=== PATIENT | male | born 1990 | race Caucasian/White ===

== ENCOUNTER 2021-05-31 16:11 | Emergency (ER) | payer OTHER, MEDICAID, SELFPAY ==
[2021-05-31 16:29] VITALS: BP 132/84; PULSE 110; RESP 18; TEMP 36.9; O2SAT 98; BMI 26.4
--- NOTE | 2021-05-31 16:32 | ED.LOWEXIN ---
HPI - Extremity Injury (Lower) General Chief Complaint: Wound/Laceration Stated Complaint: right leg injury Time Seen by Provider: 05/31/21 16:12 History of Present Illness HPI Narrative: 31-year-old male nonsmoker with noncontributory medical history presents with a chief complaint of an accidental laceration on his right anterior rivero. He was moving a large piece of core gated metal when it slipped off the car and lacerated his rivero. His tetanus was updated 3 months ago. He denies any numbness, tingling or weakness. He is otherwise well and free of complaint. Related Data Home Medications Medication Instructions Recorded Confirmed cholecalciferol (vitamin D3) 50 50 mcg PO DAILY 04/20/20 04/20/21 mcg (2,000 unit) capsule melatonin 3 mg capsule 3 mg PO BEDTIME PRN 10/04/20 04/20/21 multivitamin 1 tab PO DAILY 04/20/21 04/20/21 Previous Rx's Medication Instructions Recorded dextroamphetamine-amphetamine 5 mg 5 mg PO DAILY #30 tab 01/25/21 tablet dextroamphetamine-amphetamine ER 5 5 mg PO DAILY #30 cap 04/20/21 mg 24hr capsule,extend release dextroamphetamine-amphetamine ER 5 5 mg PO DAILY #30 cap 04/20/21 mg 24hr capsule,extend release dextroamphetamine-amphetamine ER 5 5 mg PO QAM #30 cap 04/20/21 mg 24hr capsule,extend release Allergies Allergy/AdvReac Type Severity Reaction Status Date / Time peanut Allergy Severe Anaphylaxis Verified 05/31/21 16:29 Sulfa (Sulfonamide Allergy Unknown Verified 05/31/21 16:29 Antibiotics) clindamycin AdvReac Intermediate Vomiting Verified 05/31/21 16:29 Review of Systems Review of Systems Narrative: GENERAL: Denies chills, fatigue, malaise, fever, sweats. HEENT: Denies sinus pain, ear pain, sore throat, difficulty swallowing, dizziness. RESPIRATORY: Denies dyspnea, cough, wheezing, hemoptysis, sputum. CARDIOVASCULAR: Denies chest pain, palpitations, orthopnea, edema, GASTROINTESTINAL: Denies nausea, vomiting, abdominal pain, diarrhea, constipation, melena. : Denies dysuria, frequency, incontinence, hematuria, urinary retention. MUSCULOSKELETAL: denies weakness, joint pain, or bony pain SKIN: See HPI NEUROLOGIC: Denies weakness, headache, numbness, change in speech, confusion, seizures, incoordination. PSYCHIATRIC: No concerning psychosocial issues. 12 point review of systems is negative except for those stated above Patient History Medical History (Updated 05/31/21 @ 16:46 by Fritz Mabry DO) Abdominal pain Attention deficit hyperactivity disorder (ADHD), combined type, moderate Social History marital status: unmarried,living together number of children: 0 lives independently: Yes housing: apartment education level: college occupational status: employed current occupational exposures/hazards: No special caity needs: No Smoking Status: Never smoker alcohol intake: current (3-7 drinks per weekd. ) substance use type: does not use during the past year weight has: decreased > 10 lbs (Working to lose weight for health reasons) well-balanced diet: daily or most days additional social history: - Family Constellation/Environment: Patient was born in [place] and raised from toddler to adult in the [facility]. - Childhood Trauma: None. - Developmental milestones: The patient reached normal developmental milestones. HISTORY: - None. - Deployments: N/A - Combat Exposure: N/A - Blast Exposure: N/A - Education: Patient was a good student in school and graduated from high school, later attending [employer] followed by [employer] with some courses at [employer] in [place] followed by transfer to [employer]. 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 - Legal: None. Interesting note, the will be working in construction over the summer and is going to be working on a project to build an observatory at home in [place]. Smoking Status: Never smoker Exam Narrative Exam Narrative: GEN: AOx3 and in mild distress EYES: Pupils are equal, round, and reactive to light and accommodation. Extraoccular muscles are intact bilaterally. There is no subconjunctival hemorrhage or exudate. CHEST: Lungs are clear to auscultation bilaterally and free of wheezes, rales, or rhonchi. Heart rate is regular rhythm, there are no murmurs, clicks, rubs, or gallops. There is no chest wall tenderness. ABD: Abdomen is soft and nontender. There is no guarding or rebound. Bowel sounds are normal in all 4 quadrants. There is no mass or organomegaly. EXT: 3 cm irregular flap laceration on anterior rivero without evidence of deep tissue involvement, foreign body or arterial involvement. Full painless ROM of all extremities with no loss of sensation or strength. SKIN: Warm, pink, and dry. No erythema or rash Initial Vital Signs Initial Vital Signs: Vital Signs Temperature 98.4 F 05/31/21 16:29 Pulse Rate 110 H 05/31/21 16:29 Respiratory Rate 18 05/31/21 16:29 Blood Pressure 132/84 05/31/21 16:29 Pulse Oximetry 98 05/31/21 16:29 Procedures Laceration Repair Laceration 1: Site: lower extremity Side (If applicable): right Size (cm): 3 Description: flap, irregular and clean Depth: involves muscle layer Local Anesthetic: lidocaine 1% and with bicarb Amount of anesthesia used (mL): 7 Pre-repair: wound explored and irrigated extensively Skin layer closed with: nylon Size (cm): 4-0 Number of sutures: 7 Technique: simple, interrupted Course Orders Ordered: Discontinued Medications Lidocaine/Sodium Bicarbonate (Lido 1%/Sod Bicarb 8.4% (10ml) 10 Ml Syringe) 10 ml INJ NOW ONE Stop: 05/31/21 16:45 Last Admin: 05/31/21 17:04 Dose: 10 ml Documented by: KATHY Vital Signs Vital signs: Vital Signs - 8 hr 05/31/21 16:29 Temperature 98.4 F Pulse Rate 110 H Respiratory Rate 18 Blood Pressure 132/84 Pulse Oximetry 98 Discharge Plan Departure Patient Disposition: Home Clinical Impression: Laceration Instructions: DI for Laceration Repair Activity Restrictions/Additional Instructions: Please keep the wound clean and dry to the best of your ability. Please monitor for signs of infection such as redness to the skin or increasing pain. Have the sutures removed by your doctor in about 7 days. If you are unable to get into your doctor, we would be happy to remove the sutures in that same timeframe. Prescriptions: No Action dextroamphetamine-amphetamine 5 mg tablet 5 mg PO DAILY Qty: 30 RF: 0 multivitamin Tablet 1 tab PO DAILY RF: 0 dextroamphetamine-amphetamine 5 mg capsule,extended release 24hr 5 mg PO DAILY Qty: 30 RF: 0 dextroamphetamine-amphetamine 5 mg capsule,extended release 24hr 5 mg PO DAILY Qty: 30 RF: 0 dextroamphetamine-amphetamine 5 mg capsule,extended release 24hr 5 mg PO QAM Qty: 30 RF: 0 cholecalciferol (vitamin D3) 50 mcg (2,000 unit) capsule 50 mcg PO DAILY RF: 0 melatonin 3 mg capsule 3 mg PO BEDTIME PRNRF: 0 Referrals: [facility] [Outside]
[2021-05-31] MEDS: LIDO 1%/SOD BICARB 8.4% (10ML) 10 ML SYRINGE INJ (17:04)
[2021-05-31 17:09] VITALS: BP 123/78; PULSE 99; RESP 16; O2SAT 99
[2021-05-31 17:37] VITALS: BP 123/78; PULSE 97; O2SAT 97
== END 2021-05-31 17:38 | disposition home or self-care (01) ==
PROVIDERS: Emergency Provider Emergency Medicine
DX: S81.811A Laceration without foreign body, right lower leg, initial encounter (principal); W19.XXXA Unspecified fall, initial encounter
CPT/HCPCS: 13121; 99283

== ENCOUNTER 2022-02-28 11:53 | Emergency (ER) | payer OTHER, MEDICAID, SELFPAY ==
[2022-02-28 12:00] VITALS: BP 133/69; PULSE 98; RESP 14; TEMP 36.3; O2SAT 99; BMI 25.2
--- NOTE | 2022-02-28 13:59 | ED_ITS ---
HPI - Fall <Davey Nicholas PA-C - Last Filed: 02/28/22 16:59> General Chief Complaint: Fall Stated Complaint: Fell at work ,knot on right shoulder/hip Time Seen by Provider: 02/28/22 13:30 Source: patient Mode of arrival: Ambulatory History of Present Illness HPI Narrative: 31-year-old with no reported past medical history presents to the ED status post a mechanical fall sustained just prior to arrival. Patient states he slipped on a mossy rock, striking his right scapula, right hip. Patient suspects he might have hit the right side of his head as well, however denies loss of consciousness. Patient is not on blood thinners. Patient denies any other injuries. Patient denies fever, chills, chest pain, shortness of breath, nausea, vomiting. Related Data Home Medications Medication Instructions Recorded Confirmed cholecalciferol (vitamin D3) 50 50 mcg PO DAILY 04/20/20 04/20/21 mcg (2,000 unit) capsule melatonin 3 mg capsule 3 mg PO BEDTIME PRN 10/04/20 04/20/21 multivitamin 1 tab PO DAILY 04/20/21 04/20/21 Previous Rx's Medication Instructions Recorded dextroamphetamine-amphetamine 5 mg 5 mg PO DAILY #30 tab 01/25/21 tablet dextroamphetamine-amphetamine ER 5 5 mg PO DAILY #30 cap 06/16/21 mg 24hr capsule,extend release dextroamphetamine-amphetamine ER 5 5 mg PO DAILY #30 cap 06/16/21 mg 24hr capsule,extend release dextroamphetamine-amphetamine ER 5 5 mg PO QAM #30 cap 06/16/21 mg 24hr capsule,extend release Allergies Allergy/AdvReac Type Severity Reaction Status Date / Time peanut Allergy Severe Anaphylaxis Verified 02/28/22 12:04 Sulfa (Sulfonamide Allergy Unknown Verified 02/28/22 12:04 Antibiotics) clindamycin AdvReac Intermediate Vomiting Verified 02/28/22 12:04 Review of Systems <Davey Nicholas PA-C - Last Filed: 02/28/22 16:59> Review of Systems ROS Unobtainable: All systems reviewed & are unremarkable except as noted in HPI and below Constitutional Constitutional: Denies chills, Denies fatigue, Denies fever(s), Denies frequent falls, Denies lethargy and Denies weakness Eyes Eyes: Denies change in vision, Denies eye discharge, Denies irritation and Denies loss of vision ENT Ears, Nose, Mouth, and Throat: Denies change in voice, Denies dizziness, Denies neck pain, Denies sore throat and Denies throat swelling Cardiovascular Cardiovascular: Denies chest pain, Denies irregular heart rhythm, Denies lightheadedness, Denies palpitations, Denies dyspnea, Denies dyspnea on exertion and Denies orthopnea Respiratory Respiratory: Denies cough, Denies dyspnea, Denies dyspnea on exertion and Denies wheezing Gastrointestinal Gastrointestinal: Denies abdominal pain, Denies change in bowel habits, Denies d iarrhea, Denies nausea and Denies vomiting Genitourinary Genitourinary: Denies hematuria, Denies flank pain, Denies urinary incontinence and Denies urinary urgency Musculoskeletal Musculoskeletal: Denies back pain, Denies muscle weakness, Denies neck pain, Denies numbness and Denies tingling Comments: Right-sided scapular pain, right hip pain Integumentary/Breasts Skin/Breast: Denies pruritus, Denies erythema, Denies rash and Denies wounds Neurologic Neurologic: Denies behavioral changes, Denies confusion, Denies dizziness, Denies frequent falls, Denies loss of vision, Denies numbness, Denies tingling and Denies weakness Psychiatric Psychiatric: Denies anxiety, Denies behavioral changes, Denies confusion, Denies depression, Denies homicidal ideation and Denies suicidal ideation Endocrine Endocrine: Denies fatigue, Denies flushing and Denies palpitations Hematologic/Lymphatic Hematologic/Lymphatic: Denies easy bruising Allergic/Immunologic Allergic/Immunologic: Denies urticaria, Denies throat swelling and Denies wheezing Patient History <Davey Nicholas PA-C - Last Filed: 02/28/22 16:59> Medical History (Updated 02/28/22 @ 15:10 by Davey Nicholas PA-C) Abdominal pain Attention deficit hyperactivity disorder (ADHD), combined type, moderate Social History marital status: unmarried,living together number of children: 0 lives independently: Yes housing: apartment education level: college occupational status: employed current occupational exposures/hazards: No special caity needs: No Smoking Status: Never smoker alcohol intake: current (3-7 drinks per weekd. ) substance use type: does not use during the past year weight has: decreased > 10 lbs (Working to lose weight for health reasons) well-balanced diet: daily or most days additional social history: - Family Constellation/Environment: Patient was born in [place] and raised from toddler to adult in the [facility]. - Childhood Trauma: None. - Developmental milestones: The patient reached normal developmental milestones. HISTORY: - None. - Deployments: N/A - Combat Exposure: N/A - Blast Exposure: N/A - Education: Patient was a good student in school and graduated from high school, later attending [employer] followed by [employer] with some courses at [employer] in [place] followed by transfer to [employer]. 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 - Legal: None. 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 Smoking Status: Never smoker alcohol intake frequency: 3 or more drinks per day Alcohol type: hard liquor Substance Use Type: does not use Exam <Davey Nicholas PA-C - Last Filed: 02/28/22 16:59> Initial Vital Signs Initial Vital Signs: Vital Signs Temperature 97.4 F L 02/28/22 12:00 Pulse Rate 98 H 02/28/22 12:00 Respiratory Rate 14 02/28/22 12:00 Blood Pressure 133/69 02/28/22 12:00 Pulse Oximetry 99 02/28/22 12:00 Const General: cooperative, healthy appearing and comfortable HENMT Head: normal to inspection, normocephalic, No Quinones's sign and No raccoon eyes Ears: hearing grossly normal bilaterally Nose: external nose normal Face and sinus: normal facial exam Other HENMT:: Mild tenderness to palpation of right temporal area. No palpable skull fracture, no hematoma, skin intact. Eyes General: Yes appearance normal, both eyes and all related structures Neck Neck: normal visual inspection and full ROM Chest Chest: normal inspection of the chest Resp Effort & Inspection: normal respiratory effort Auscultation: clear to auscultation bilaterally Cardio Rate: regular rate Rhythm: regular rhythm GI Other: Abdomen is soft, nondistended, nontender to palpation Back/Spine/Pelvis Back: normal to inspection and No back tenderness Neuro General: patient alert, patient awake and patient oriented x3 Extrem Other: Small abrasion on right scapular area, bony tenderness to palpation of scapular region. Patient has full range of motion, however experiences pain in the right scapular area when at adducting his arm. Psych Appearance: grossly normal Mental Status: mental status grossly normal <Fritz Mabry DO - Last Filed: 03/03/22 00:43> Initial Vital Signs Initial Vital Signs: Vital Signs Temperature 97.4 F L 02/28/22 12:00 Pulse Rate 98 H 02/28/22 12:00 Respiratory Rate 14 02/28/22 12:00 Blood Pressure 133/69 02/28/22 12:00 Pulse Oximetry 99 02/28/22 12:00 Course <Davey Nicholas PA-C - Last Filed: 02/28/22 16:59> Orders Ordered: ED Orders 02/28/22 14:07 XR shoulder RT min 2V Stat Vital Signs Vital signs: Vital Signs - 8 hr 02/28/22 12:00 02/28/22 15:16 Temperature 97.4 F L Pulse Rate 98 H 86 Respiratory Rate 14 18 Blood Pressure 133/69 116/73 Pulse Oximetry 99 100 <Fritz Mabry DO - Last Filed: 03/03/22 00:43> Orders Ordered: ED Orders 02/28/22 14:07 XR shoulder RT min 2V Stat Vital Signs Vital signs: Vital Signs - 8 hr 02/28/22 12:00 02/28/22 15:16 Temperature 97.4 F L Pulse Rate 98 H 86 Respiratory Rate 14 18 Blood Pressure 133/69 116/73 Pulse Oximetry 99 100 MDM - Fall <SABINE Ferguson Last Filed: 02/28/22 16:59> Imaging Data Shoulder x-ray: Radiologist's Impression: PROCEDURE:? XR SHOULDER RT MIN 2V ? INDICATIONS:? Fall, direct injury, scapular TTP ? TECHNIQUE:? 3 views of the shoulder were acquired.? ? COMPARISON:? None. ? FINDINGS:? ? Bones:? No fractures or dislocations.? No suspicious bony lesions.? Visualized ribs appear intact.? ? Soft tissues:? No suspicious soft tissue calcifications.? ? IMPRESSION:? No acute radiographic findings. If pain persists, followup imaging in 5-7 days is recommended to exclude occult fracture. ? ? Dictated by: Evelina Marinelli M.D. on 02/28/2022 at 14:44 ? ? Approved by: Evelina Marinelli M.D. on 02/28/2022 at 14:45 ? MDM Narrative Medical decision making narrative: 31-year-old with no reported past medical history presents to the ED status post a mechanical fall sustained just prior to arrival. Concern for musculoskeletal sprain/strain versus fracture. Will obtain shoulder x-rays to include the scapula. Patient took some ibuprofen prior to arrival and states that his pain is well controlled. Will reassess. X-ray without acute findings. Patient discharged home with ED return precautions. Patient verbalized understanding. Discharge Plan Departure Patient Disposition: Home Clinical Impression: Right shoulder pain Instructions: DI for Shoulder Pain Activity Restrictions/Additional Instructions: You were evaluated in the ED today for a right shoulder injury. Your x-ray did not show a fracture or dislocation. Your pain is likely due to a contusion or musculoskeletal sprain/strain. You may continue to take ibuprofen for your symptoms. Return to the ED if you have worsening pain, shortness of breath, chest pain. Prescriptions: No Action dextroamphetamine-amphetamine 5 mg tablet 5 mg PO DAILY Qty: 30 0RF Rx Instructions: Take with Adderall 5 mg ER AM dose if afternoon booster needed. multivitamin Tablet 1 tab PO DAILY 0RF cholecalciferol (vitamin D3) 50 mcg (2,000 unit) capsule 50 mcg PO DAILY 0RF melatonin 3 mg capsule 3 mg PO BEDTIME PRN0RF dextroamphetamine-amphetamine 5 mg capsule,extended release 24hr 5 mg PO DAILY Qty: 30 0RF dextroamphetamine-amphetamine 5 mg capsule,extended release 24hr 5 mg PO DAILY Qty: 30 0RF dextroamphetamine-amphetamine 5 mg capsule,extended release 24hr 5 mg PO QAM Qty: 30 0RF Referrals: Neville Sue MD [Primary Care Provider] - <Fritz Mabry DO - Last Filed: 03/03/22 00:43> Cosign ED Attending Kavithaature Attestation: I was immediately available in the department for consultation. Documentation has been reviewed. I agree with assessment and plan.
--- NOTE | 2022-02-28 14:07 | DI.RAD.S_ITS ---
PROCEDURE: XR SHOULDER RT MIN 2V INDICATIONS: Fall, direct injury, scapular TTP TECHNIQUE: 3 views of the shoulder were acquired. COMPARISON: None. FINDINGS: Bones: No fractures or dislocations. No suspicious bony lesions. Visualized ribs appear intact. Soft tissues: No suspicious soft tissue calcifications. IMPRESSION: No acute radiographic findings. If pain persists, followup imaging in 5-7 days is recommended to exclude occult fracture. Dictated by: Evelina Marinelli M.D. on 02/28/2022 at 14:44 Approved by: Evelina Marinelli M.D. on 02/28/2022 at 14:45
[2022-02-28 15:16] VITALS: BP 116/73; PULSE 86; RESP 18; O2SAT 100
== END 2022-02-28 15:17 | disposition home or self-care (01) ==
PROVIDERS: Emergency Provider Student in an Organized Health Care Education/Training Program; PCP Family Medicine
DX: M25.511 Pain in right shoulder (principal); W01.198A Fall on same level from slipping, tripping and stumbling with subsequent striking against other object, initial encounter
CPT/HCPCS: 73030; 99283

== ENCOUNTER → 2023-01-24 07:54 | Outpatient (CLI) | payer OTHER, MEDICAID, SELFPAY ==
--- NOTE | 2023-01-24 07:56 | DI.US.S_ITS ---
PROCEDURE: US ABDOMEN LIMITED INDICATIONS: RIGHT UPPER QUADRANT PAIN TECHNIQUE: Real-time scanning was performed of the abdominal, with image documentation. COMPARISON: None. FINDINGS: Liver: Liver is normal in size and homogeneous in echotexture. Gallbladder: Nondilated. No stones or sludge. Normal gallbladder wall thickness. Gallbladder wall polyp at the posterior wall measuring 0.4 cm. No pericholecystic fluid. Negative sonographic Sabillon's sign. Biliary ducts: Intrahepatic bile ducts are non-dilated. Extrahepatic bile duct caliber measures 3 mm. Normal is 6-7 mm or less in diameter, or 10 mm or less post-cholecystectomy. Pancreas: Visualized portions of the pancreas are sonographically normal. IMPRESSION: 1. No acute cholecystitis. No convincing gallstones. 2. Small gallbladder polyp measuring at 0.4 cm. No further follow-up is required. Dictated by: Vazquez Hernandez M.D. on 01/24/2023 at 9:24 Approved by: Vazquez Hernandez M.D. on 01/24/2023 at 9:26
== END ==
PROVIDERS: PCP Family Medicine; Referring Provider Family Medicine; Visit Provider Family Medicine
DX: K82.4 Cholesterolosis of gallbladder (principal); R10.11 Right upper quadrant pain
CPT/HCPCS: 76705

== ENCOUNTER 2024-06-22 01:07 | Emergency (ER) | payer OTHER, SELFPAY ==
[2024-06-22] VITALS (7 sets, daily range): BP systolic 142–149; BP diastolic 72–86; PULSE 108–137; RESP 18–24; TEMP 37.2; O2SAT 95–100; BMI 27.7
--- NOTE | 2024-06-22 01:19 | EKG_ITS ---
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
--- NOTE | 2024-06-22 01:30 | ED_ITS ---
HPI - Chest Pain General Chief Complaint: Chest Pain Stated Complaint: Chest pain Time Seen by Provider: 06/22/24 01:30 Source: patient Mode of arrival: Wheelchair Limitations: no limitations History of Present Illness HPI narrative: Patient is a healthy 34-year-old male who presents today with chest pain and palpitations. He reports that he just got over with COVID. He started having symptoms last week he took DayQuil and NyQuil without any sort of issue he has been testing negative for the last 2 days and symptoms have overall improved. Today he reports that he woke up tonight with racing heart his January got his heart rate in the 150s he had some pressure and palpitations. He thinks he may have felt this like last week or couple days ago. No dizziness or lightheadedness. He reports that he did drink 2 things of caffeine today but still about 80 mg or last he did have a little bit of alcohol tonight as well. He is no longer reporting any COVID symptoms feeling better in that regard. He has no arrhythmia or coronary artery disease. He denies any significant shortness of breath Related Data Home Medications Medication Instructions Recorded Confirmed cholecalciferol (vitamin D3) 50 50 mcg PO DAILY 04/20/20 04/20/21 mcg (2,000 unit) capsule melatonin 3 mg capsule 3 mg PO BEDTIME PRN 10/04/20 04/20/21 multivitamin 1 tab PO DAILY 04/20/21 04/20/21 Previous Rx's Medication Instructions Recorded dextroamphetamine-amphetamine 5 mg 5 mg PO DAILY #30 tabs 01/25/21 tablet dextroamphetamine-amphetamine ER 5 5 mg PO DAILY #30 caps 06/16/21 mg 24hr capsule,extend release dextroamphetamine-amphetamine ER 5 5 mg PO DAILY #30 caps 06/16/21 mg 24hr capsule,extend release dextroamphetamine-amphetamine ER 5 5 mg PO QAM #30 caps 06/16/21 mg 24hr capsule,extend release Allergies Allergy/AdvReac Type Severity Reaction Status Date / Time peanut Allergy Severe Anaphylaxis Verified 02/28/22 12:04 Sulfa (Sulfonamide Allergy Unknown Verified 02/28/22 12:04 Antibiotics) clindamycin AdvReac Intermediate Vomiting Verified 02/28/22 12:04 Patient History Medical History (Updated 06/22/24 @ 03:06 by Pearl Connolly DO) Attention deficit hyperactivity disorder (ADHD), combined type, moderate Abdominal pain Social History marital status: unmarried,living together number of children: 0 lives independently: Yes housing: apartment education level: college occupational status: employed current occupational exposures/hazards: No special caity needs: No Smoking Status: Never smoker alcohol intake: current (3-7 drinks per weekd. ) substance use type: does not use during the past year weight has: decreased > 10 lbs (Working to lose weight for health reasons) well-balanced diet: daily or most days additional social history: - Family Constellation/Environment: Patient was born in [place] and raised from toddler to adult in the [facility]. - Childhood Trauma: None. - Developmental milestones: The patient reached normal developmental milestones. HISTORY: - None. - Deployments: N/A - Combat Exposure: N/A - Blast Exposure: N/A - Education: Patient was a good student in school and graduated from high school, later attending [employer] followed by [employer] with some courses at [employer] in [employer] followed by transfer to [employer]. 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 - Current Living: Patient currently lives with his girlfriend - Support: Income from employment. - Legal: None. Interesting note, the will be working in construction over the summer and is going to be working on a project to build an observatory at home in [place]. Smoking Status: Never smoker alcohol intake frequency: 3 or more drinks per day Alcohol type: hard liquor Substance Use Type: does not use Exam Initial Vital Signs Initial Vital Signs: Vital Signs Temperature 99.0 F 06/22/24 01:16 Pulse Rate 137 H 06/22/24 01:16 Respiratory Rate 20 06/22/24 01:16 Blood Pressure 149/72 H 06/22/24 01:16 Pulse Oximetry 100 06/22/24 01:16 Oxygen Delivery Method Room Air 06/22/24 01:16 GENERAL: Alert pleasant well-appearing 34-year-old and in no acute distress. HEENT: Head atraumatic,EOMI, pupils reactive, face symmetric, moist mucous membranes CARDIOVASCULAR: Tachycardic regular no murmurs RESPIRATORY: Breath sounds equal bilaterally, no wheezes rales or rhonchi. ABDOMEN: Soft, nontender. Normoactive bowel sounds all 4 quadrants. No guarding or rebound. EXTREMITIES: Normal range of motion, no clubbing or edema. Neurovascularly intact NEUROLOGICAL: Alert and oriented x4.Normal gait and speech. Cranial nerves II through XII grossly intact. SKIN: Warm, dry, no laceration, no petechiae, no rashes or lesions. Course Orders Ordered: ED Orders 06/22/24 01:10 EKG-12 Lead Stat 06/22/24 01:28 Complete Blood Count AUTO DIFF Stat Comprehensive Metabolic Panel Stat D Dimer Stat Lipase Stat TSH [Thyroid Stimulating Hormone] Stat Troponin & CK Cardiac Panel Stat 06/22/24 01:30 XR chest 1V Stat Discontinued Medications Sodium Chloride (Normal Saline 0.9%) 1,000 mls @ 1,000 mls/hr IV BOLUS ONE Stop: 06/22/24 02:29 Last Infusion: 06/22/24 02:40 Dose: Infused Documented By: Admin: 06/22/24 01:36 Dose: 1,000 mls/hr Documented By: LIAT Vital Signs Vital signs: Vital Signs - 8 hr 06/22/24 01:16 06/22/24 01:28 06/22/24 01:30 Temperature 99.0 F Pulse Rate 137 H 127 H 126 H Respiratory Rate 20 19 22 Blood Pressure 149/72 H Pulse Oximetry 100 99 97 Oxygen Delivery Method Room Air 06/22/24 02:00 06/22/24 02:30 06/22/24 02:38 Temperature Pulse Rate 113 H 112 H 113 H Respiratory Rate 18 24 Blood Pressure Pulse Oximetry 95 96 97 Oxygen Delivery Method 06/22/24 02:38 06/22/24 03:00 Temperature Pulse Rate 108 H Respiratory Rate 20 Blood Pressure 142/86 H Pulse Oximetry 96 Oxygen Delivery Method MDM - Chest Pain Lab Data 06/22/24 01:28 06/22/24 01:28 Labs: Lab Results 06/22/24 Range/Units 01:28 WBC 8.2 (4.5-11.0) X10^3/uL RBC 5.11 (4.5-5.9) X10^6/uL Hgb 15.5 (13.5-17.5) g/dL Hct 43.3 (41-53) % MCV 84.6 (80-100) fL MCH 30.4 (26-34) PG MCHC 35.9 (30-36) % RDW 13.1 (11.6-14.8) % Plt Count 194 (150-400) X10^3/uL Neut % (Auto) 44.5 L (50-75) % Lymph % (Auto) 45.5 H (25-40) % [place] % (Auto) 7.4 (3-14) % Eos % (Auto) 2.0 (2-4) % Baso % (Auto) 0.6 (0-2) % Neut # (Auto) 3600 (0915-7207) /uL Lymph # (Auto) 3700 (0211-8861) /uL [place] # (Auto) 600 (0-900) /uL Eos # (Auto) 200 (0-450) /uL Baso # (Auto) 0 (0-100) /uL D-Dimer < 200 (<500) ng/ml Sodium 140 (137-145) mmol/L Potassium 3.5 (3.4-5.1) mmol/L Chloride 106 (98-107) mmol/L Carbon Dioxide 27 (22-32) mmol/L BUN 12 (9-20) mg/dL Creatinine 0.78 (0.66-1.25) mg/dL Estimated GFR > 60 (>60) mL/min BUN/Creatinine Ratio 15.4 (6-22) Glucose 113 H (70-100) mg/dL Calcium 9.0 (8.4-10.2) mg/dL Total Bilirubin 0.9 (0.2-1.3) mg/dL AST 35 (17-59) IU/L ALT 55 H (<50) IU/L Alkaline Phosphatase 61 (38-126) U/L Total Creatine Kinase 69 (55-170) U/L Troponin I < 0.012 (0.01-0.034) ng/mL Total Protein 7.6 (6.3-8.2) g/dL Albumin 4.4 (3.5-5.0) g/dL Globulin 3.2 (1.7-4.1) g/dL Albumin/Globulin Ratio 1.4 (1.0-2.8) Lipase 111 (23-300) U/L TSH 5.46 H (0.47-4.68) uIU/mL Imaging Data Chest x-ray: Radiologist's Impression: Preliminary report no acute cardiopulmonary process ECG Data Attestation: I personally reviewed and interpreted this ECG as follows: Interpretation: Normal sinus rhythm rate 131 AK interval 142 QRS [address] changes MDM Narrative Medical decision making narrative: Patient is a healthy 34-year-old male recently getting over COVID presenting today with palpitations. He is noted to have sinus tachycardia in the rate 130s when he initially came in. Heart rate come into the 120s in his slowly come down with IV. He overall is feeling much better. Blood work has been reviewed he has a negative D-dimer negative troponin no anemia, electrolytes stable no MACHO TSH is 5.46 Chest x-ray reviewed no acute cardiopulmonary process EKG reviewed sinus tachycardia Patient received 1 L of IV fluids Patient presenting today with palpitations. Heart rate was actually quite fast when he came in but not hypotensive. Heart rate improved with IV fluids only, down to 105, overall feeling much better. He does report having 2 episodes of coffee but it does seem to be a little delayed reaction to be from caffeine although still possible. No concern for pulmonary embolism with a negative D- dimer. TSH is slightly elevated although I do not think high enough to be for thyroid storm. Recommend staying hydrated supportive care only. Encouraged ZIO patch he does have a PCP meet can follow-up with Discharge Plan Departure Patient Disposition: Home Clinical Impression: Heart palpitations Instructions: DI for Palpitations Activity Restrictions/Additional Instructions: *You have been diagnosed with palpitations *What to do: At this time if you continue to have heart palpitations I recommend he talk to primary care provider about a ZIO patch. Please stay hydrated would avoid caffeine *Continue to take medications as directed *Follow up with your primary care provider in 2-3 days or call [phone] *Return to ER if you should have increasing palpitations dizziness lightheadedness passing out shortness of breath [or] any new, worsening or concerning symptoms Prescriptions: No Action dextroamphetamine-amphetamine 5 mg tablet 5 mg PO DAILY Qty: 30 0RF Rx Instructions: Take with Adderall 5 mg ER AM dose if afternoon booster needed. multivitamin Tablet 1 tab PO DAILY cholecalciferol (vitamin D3) 50 mcg (2,000 unit) capsule 50 mcg PO DAILY melatonin 3 mg capsule 3 mg PO BEDTIME PRN dextroamphetamine-amphetamine 5 mg capsule,extended release 24hr 5 mg PO DAILY Qty: 30 0RF dextroamphetamine-amphetamine 5 mg capsule,extended release 24hr 5 mg PO DAILY Qty: 30 0RF dextroamphetamine-amphetamine 5 mg capsule,extended release 24hr 5 mg PO QAM Qty: 30 0RF Referrals: Neville Sue MD [Primary Care Provider] - Stand Alone Forms: Patient Portal/API
--- NOTE | 2024-06-22 01:30 | DI.RAD.S_ITS ---
PROCEDURE: XR CHEST 1V INDICATIONS: chest pain TECHNIQUE: One view of the chest was acquired. COMPARISON: None. FINDINGS: Surgical changes and devices: None. Lungs and pleura: Lungs are clear. No pleural effusions or pneumothorax. Mediastinum: Mediastinal contours appear normal. Heart size is normal. Bones and chest wall: No suspicious bony lesions. Overlying soft tissues appear unremarkable. IMPRESSION: No acute cardiopulmonary abnormality is seen. Note: This final report is concordant with the preliminary after-hours interpretation provided by [facility] Approved by: Sergio Scott M.D. on 06/22/2024 at 8:35
[2024-06-22] MEDS: SODIUM CHLORIDE 0.9% 1,000 ML 1000 ML IV (01:36)
[2024-06-22 01:39] LABS: Add Manual Diff / Slide Review NO; Basophils Absolute Auto 0 /uL (0-100); Basophils Percent Auto 0.6 % (0-2); Eosinophils Absolute Auto 200 /uL (0-450); Hematocrit 43.3 % (41-53); Hemoglobin 15.5 g/dL (13.5-17.5); Lymphocytes Absolute Auto 3700 /uL (1100-4500); Lymphocytes Percent Auto 45.5 % (25-40); Mean Corpuscular HGB Conc 35.9 % (30-36); Mean Corpuscular Hemoglobin 30.4 PG (26-34); Mean Corpuscular Volume 84.6 fL (80-100); Monocytes Absolute Auto 600 /uL (0-900); Monocytes Percent Auto 7.4 % (3-14); Neutrophils Absolute Auto 3600 /uL (1500-7000); Neutrophils Percent Auto 44.5 % (50-75); Platelet Count 194 X10^3/uL (150-400); Red Blood Cell Count 5.11 X10^6/uL (4.5-5.9); Red Cell Distribution Width 13.1 % (11.6-14.8); White Blood Cell Count 8.2 X10^3/uL (4.5-11.0)
[2024-06-22 01:48] LABS: Alanine Aminotransferase 55 IU/L (<50); Albumin 4.4 g/dL (3.5-5.0); Albumin Globulin Ratio 1.4 (1.0-2.8); Alkaline Phosphatase 61 U/L (38-126); Aspartate Aminotransferase 35 IU/L (17-59); BUN Creatinine Ratio 15.4 (6-22); Bilirubin Total 0.9 mg/dL (0.2-1.3); Blood Urea Nitrogen 12 mg/dL (9-20); Carbon Dioxide 27 mmol/L (22-32); Chloride 106 mmol/L (98-107); Creatine Kinase 69 U/L (55-170); Estimated Glomerular Filt Rate > 60 mL/min (>60); Globulin 3.2 g/dL (1.7-4.1); Glucose 113 mg/dL (70-100); HEMOLYSIS 22 (0-50); Lipase 111 U/L (23-300); Potassium 3.5 mmol/L (3.4-5.1); Sodium 140 mmol/L (137-145); Total Protein 7.6 g/dL (6.3-8.2)
[2024-06-22 01:54] LABS: D Dimer < 200 ng/ml (<500)
[2024-06-22 02:00] LABS: Troponin I < 0.012 ng/mL (0.01-0.034)
[2024-06-22 04:06] LABS: Thyroid Stimulating Hormone 5.46 uIU/mL (0.47-4.68)
== END 2024-06-22 03:17 | disposition home or self-care (01) ==
PROVIDERS: Emergency Provider Emergency Medicine; PCP Family Medicine
DX: R00.2 Palpitations (principal); R00.0 Tachycardia, unspecified
CPT/HCPCS: 36415; 71045; 80053; 82550; 83690; 84443; 84484; 85025; 85379; 93005; 93010; 96360; 99284

== ENCOUNTER 2024-09-16 15:03 | Emergency (ER) | payer OTHER, SELFPAY ==
[2024-09-16] VITALS (7 sets, daily range): BP systolic 117–138; BP diastolic 70–88; PULSE 85–124; RESP 15–22; TEMP 37.2; O2SAT 95–98; BMI 27.9
--- NOTE | 2024-09-16 15:21 | DI.RAD.S_ITS ---
PROCEDURE: XR CHEST 1V INDICATIONS: chest pain TECHNIQUE: One view of the chest was acquired. COMPARISON: [facility], CR, XR CHEST 1V, 06/22/2024, 2:07. FINDINGS: Surgical changes and devices: None. Lungs and pleura: No dense consolidation or pleural effusions. Mediastinum: Heart size is normal and unchanged. Bones and chest wall: Unremarkable IMPRESSION: No acute radiographic abnormality on this single view study. Dictated by: Ernesto Tran M.D. on 09/16/2024 at 16:17 Approved by: Ernesto Tran M.D. on 09/16/2024 at 16:17
--- NOTE | 2024-09-16 15:29 | EKG_ITS ---
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
[2024-09-16 16:04] LABS: Add Manual Diff / Slide Review NO; Basophils Absolute Auto 100 /uL (0-100); Basophils Percent Auto 0.8 % (0-2); Eosinophils Absolute Auto 100 /uL (0-450); Eosinophils Percent Auto 1.3 % (2-4); Hematocrit 45.7 % (41-53); Lymphocytes Absolute Auto 1600 /uL (1100-4500); Lymphocytes Percent Auto 19.6 % (25-40); Mean Corpuscular Hemoglobin 29.8 PG (26-34); Monocytes Absolute Auto 500 /uL (0-900); Monocytes Percent Auto 6.5 % (3-14); Neutrophils Absolute Auto 6000 /uL (1500-7000); Neutrophils Percent Auto 71.8 % (50-75); Platelet Count 224 X10^3/uL (150-400); Red Blood Cell Count 5.38 X10^6/uL (4.5-5.9); Red Cell Distribution Width 12.9 % (11.6-14.8); White Blood Cell Count 8.4 X10^3/uL (4.5-11.0)
[2024-09-16 16:11] LABS: INR 1.1 (0.9-1.3); Prothrombin Time 12.1 SECONDS (9.4-12.5)
[2024-09-16 16:14] LABS: PTT Partial Thromboplastin Tim 38 SECONDS (25.1-36.5)
[2024-09-16 16:16] LABS: Alanine Aminotransferase 41 IU/L (<50); Albumin 4.7 g/dL (3.5-5.0); Albumin Globulin Ratio 1.6 (1.0-2.8); Alkaline Phosphatase 51 U/L (38-126); Aspartate Aminotransferase 26 IU/L (17-59); BUN Creatinine Ratio 12.3 (6-22); Bilirubin Total 1.6 mg/dL (0.2-1.3); Blood Urea Nitrogen 10 mg/dL (9-20); Calcium 9.2 mg/dL (8.4-10.2); Carbon Dioxide 27 mmol/L (22-32); Chloride 106 mmol/L (98-107); Creatine Kinase 55 U/L (55-170); Estimated Glomerular Filt Rate > 60 mL/min (>60); Globulin 2.9 g/dL (1.7-4.1); Glucose 129 mg/dL (70-100); HEMOLYSIS < 15 (0-50); Lipase 85 U/L (23-300); Potassium 3.7 mmol/L (3.4-5.1); Sodium 140 mmol/L (137-145); Total Protein 7.6 g/dL (6.3-8.2)
[2024-09-16 16:27] LABS: NT-proBNP (BNP-Adult 18+) < 20 pg/mL (<125); Troponin I < 0.012 ng/mL (0.01-0.034)
[2024-09-16 19:18] LABS: Ur Creatinine Normal (Normal); Ur Specific Gravity Normal (Normal); Urine pH Normal (Normal)
[2024-09-16 19:19] LABS: UR Morphine/Opiate cutoff 300 Negative (Negative); Urine Amphetamines Negative (Negative); Urine Barbiturates Negative (Negative); Urine Benzodiazepines Negative (Negative); Urine Cocaine Negative (Negative); Urine MDMA Negative (Negative); Urine Methadone Negative (Negative); Urine Methamphetamines Negative (Negative); Urine Oxycodone Negative (Negative); Urine Phencyclidine Negative (Negative); Urine Tetrahydrocannabinol Negative (Negative); Urine Tricyclic Antidepressant Negative (Negative)
--- NOTE | 2024-09-16 19:20 | PC.NURSE ---
pt c/o difficulty sleeping has been taking otc meds without relief
--- NOTE | 2024-09-16 19:27 | ED.ARRPALP ---
HPI - Arrhythmia/Palpitations General Chief Complaint: Arrhythmia/Palpitations Stated Complaint: mild chest px Time Seen by Provider: 09/16/24 18:22 Source: patient Mode of arrival: Ambulatory History of Present Illness HPI narrative: 34-year-old male presents for chest pain, palpitations, insomnia for the last 37 hours. Patient states that he was seen 06/22/2024 for similar symptoms and underwent negative workup in the emergency department. He has been following up with his primary care doctor to discuss additional testing. Patient states that since last night he has been unable to sleep, every time he feels himself drifting off he startles awake. He has tried Unisom and melatonin without relief. He states that he has always has been a poor sleeper, but complete insomnia is unusual for him. He states that he wants to rule out emergencies with his heart primarily, but if he could get help with something to sleep that would also be welcomed. Patient states that he has been trying to improve his sleep hygiene with some success. Normally unysom and melatonin help him fall asleep. Since arrival to the emergency department chest symptoms have improved. Related Data Home Medications Medication Instructions Recorded Confirmed cholecalciferol (vitamin D3) 50 50 mcg PO DAILY 04/20/20 04/20/21 mcg (2,000 unit) capsule melatonin 3 mg capsule 3 mg PO BEDTIME PRN 10/04/20 04/20/21 multivitamin 1 tab PO DAILY 04/20/21 04/20/21 Previous Rx's Medication Instructions Recorded dextroamphetamine-amphetamine 5 mg 5 mg PO DAILY #30 tabs 01/25/21 tablet dextroamphetamine-amphetamine ER 5 5 mg PO DAILY #30 caps 06/16/21 mg 24hr capsule,extend release dextroamphetamine-amphetamine ER 5 5 mg PO DAILY #30 caps 06/16/21 mg 24hr capsule,extend release dextroamphetamine-amphetamine ER 5 5 mg PO QAM #30 caps 06/16/21 mg 24hr capsule,extend release trazodone 50 mg tablet 50 mg PO BEDTIME PRN insomnia #14 09/16/24 tabs Allergies Allergy/AdvReac Type Severity Reaction Status Date / Time peanut Allergy Severe Anaphylaxis Verified 09/16/24 15:21 Sulfa (Sulfonamide Allergy Unknown Verified 09/16/24 15:21 Antibiotics) clindamycin AdvReac Intermediate Vomiting Verified 09/16/24 15:21 Patient History Medical History Attention deficit hyperactivity disorder (ADHD), combined type, moderate Abdominal pain Social History marital status: unmarried,living together number of children: 0 lives independently: Yes housing: apartment education level: college occupational status: employed current occupational exposures/hazards: No special caity needs: No Smoking Status: Never smoker alcohol intake: current (3-7 drinks per weekd. ) substance use type: does not use during the past year weight has: decreased > 10 lbs (Working to lose weight for health reasons) well-balanced diet: daily or most days additional social history: - Family Constellation/Environment: Patient was born in [place] and raised from toddler to adult in the [facility]. - Childhood Trauma: None. - Developmental milestones: The patient reached normal developmental milestones. HISTORY: - None. - Deployments: N/A - Combat Exposure: N/A - Blast Exposure: N/A - Education: Patient was a good student in school and graduated from high school, later attending [employer] followed by [employer] with some courses at [employer] in [place] followed by transfer to [employer]. 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 - Current Living: Patient currently lives with his girlfriend - Support: Income from employment. - Legal: None. Interesting note, the will be working in construction over the summer and is going to be working on a project to build an observatory at home in [place]. Smoking Status: Never smoker alcohol intake frequency: 3 or more drinks per day Alcohol type: hard liquor Substance Use Type: does not use Exam Initial Vital Signs Initial Vital Signs: Vital Signs Temperature 98.9 F 09/16/24 15:14 Pulse Rate 124 H 09/16/24 15:14 Respiratory Rate 20 09/16/24 15:14 Blood Pressure 138/88 09/16/24 15:14 Pulse Oximetry 97 09/16/24 15:14 Oxygen Delivery Method Room Air 09/16/24 15:14 Const: Awake, alert, no acute distress, nontoxic appearing Cardiac: regular rate, regular rhythm RESP: unlabored, clear bilaterally, no wheezing GI: Soft, nontender, nondistende Skin: Warm, Dry, intact, no rashes Neuro: AO x3, CN II-XII grossly intact, moves all extremities Course Orders Ordered: Discontinued Medications Aspirin (Aspirin 81 Mg Chew Tab) 324 mg PO NOW ONE Stop: 09/16/24 15:22 Last Admin: 09/16/24 19:34 Dose: Not Given Documented By: LAILA Trazodone HCl (Trazodone 50 Mg Tablet) 100 mg PO BEDTIME ONE Stop: 09/16/24 19:31 Last Admin: 09/16/24 19:53 Dose: 100 mg Documented By: LAILA Vital Signs Vital signs: Vital Signs - 8 hr 09/16/24 15:14 09/16/24 16:29 Temperature 98.9 F Pulse Rate 124 H 85 Respiratory Rate 20 18 Blood Pressure 138/88 122/85 Pulse Oximetry 97 98 Oxygen Delivery Method Room Air Room Air MDM - Arrhythmia/Palpitations Differential Diagnosis Differential diagnosis: Likely palpitations, sinus tachycardia and ventricular premature beats Lab Data 09/16/24 15:50 09/16/24 15:50 Labs: Lab Results 09/16/24 09/16/24 Range/Units 15:50 18:58 WBC 8.4 (4.5-11.0) X10^3/uL RBC 5.38 (4.5-5.9) X10^6/uL Hgb 16.0 (13.5-17.5) g/dL Hct 45.7 (41-53) % MCV 85.0 (80-100) fL MCH 29.8 (26-34) PG MCHC 35.0 (30-36) % RDW 12.9 (11.6-14.8) % Plt Count 224 (150-400) X10^3/uL Neut % (Auto) 71.8 (50-75) % Lymph % (Auto) 19.6 L (25-40) % [place] % (Auto) 6.5 (3-14) % Eos % (Auto) 1.3 L (2-4) % Baso % (Auto) 0.8 (0-2) % Neut # (Auto) 6000 (8187-1742) /uL Lymph # (Auto) 1600 (6817-1343) /uL [place] # (Auto) 500 (0-900) /uL Eos # (Auto) 100 (0-450) /uL Baso # (Auto) 100 (0-100) /uL PT 12.1 (9.4-12.5) SECONDS INR 1.1 (0.9-1.3) APTT 38 H (25.1-36.5) SECONDS Sodium 140 (137-145) mmol/L Potassium 3.7 (3.4-5.1) mmol/L Chloride 106 (98-107) mmol/L Carbon Dioxide 27 (22-32) mmol/L BUN 10 (9-20) mg/dL Creatinine 0.81 (0.66-1.25) mg/dL Estimated GFR > 60 (>60) mL/min BUN/Creatinine Ratio 12.3 (6-22) Glucose 129 H (70-100) mg/dL Calcium 9.2 (8.4-10.2) mg/dL Magnesium 2.0 (1.6-2.3) mg/dL Total Bilirubin 1.6 H (0.2-1.3) mg/dL AST 26 (17-59) IU/L ALT 41 (<50) IU/L Alkaline Phosphatase 51 (38-126) U/L Total Creatine Kinase 55 (55-170) U/L Troponin I < 0.012 (0.01-0.034) ng/mL NT-Pro-B Natriuret Pep < 20 (<125) pg/mL Total Protein 7.6 (6.3-8.2) g/dL Albumin 4.7 (3.5-5.0) g/dL Globulin 2.9 (1.7-4.1) g/dL Albumin/Globulin Ratio 1.6 (1.0-2.8) Lipase 85 (23-300) U/L U Opiates 300ng/mL cut Negative (Negative) Ur Oxycodone Screen Negative (Negative) Urine Methadone Screen Negative (Negative) Ur Barbiturates Screen Negative (Negative) U Tricyclic Antidepress Negative (Negative) Ur Phencyclidine Scrn Negative (Negative) Ur Amphetamines Screen Negative (Negative) U Methamphetamines Scrn Negative (Negative) Ur MDMA Scrn (Ecstasy) Negative (Negative) U Benzodiazepines Scrn Negative (Negative) Urine Cocaine Screen Negative (Negative) U Marijuana (THC) Screen Negative (Negative) Urine pH Normal (Normal) Urine Specific [place] Normal (Normal) Ur Creatinine Normal (Normal) Imaging Data Chest x-ray: Radiologist's Impresson: PROCEDURE: XR CHEST 1V INDICATIONS: chest pain TECHNIQUE: One view of the chest was acquired. COMPARISON: [facility], CR, XR CHEST 1V, 06/22/2024, 2:07. FINDINGS: Surgical changes and devices: None. Lungs and pleura: No dense consolidation or pleural effusions. Mediastinum: Heart size is normal and unchanged. Bones and chest wall: Unremarkable IMPRESSION: No acute radiographic abnormality on this single view study. Dictated by: Ernesto Tran M.D. on 09/16/2024 at 16:17 Approved by: Ernesto Tran M.D. on 09/16/2024 at 16:17 ECG Data Interpretation: sinus tachycardia at 115 bpm[address] Normal DC. No ST-T wave changes MDM Narrative Medical decision making narrative: Well appearing patient with chest pains and insomnia. EKG, labs, CXR normal, no evidence of heart strain. Mild elevation in T. bili from previous - patient states he used to drink heavily in college but has cut down significantly on alcohol use and hasn't had an alcoholic beverage in several days. Informed of result, counseled to follow up with PCP. Since patient is failing Unisom and melatonin a short course of trazodone was sent to pharmacy of choice. 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 Patient counseled to follow up with his primary care doctor if he continues to experience issues with insomnia. Discharge Plan Departure Patient Disposition: Home Clinical Impression: Insomnia, Chest pain Instructions: Insomnia Activity Restrictions/Additional Instructions: Your laboratory work, EKG, and chest x-ray did not show any problems with your hear such as heart attack. Since your doxylamine and melatonin are not working for your insomnia a short course of trazodone has been sent to your pharmacy. Do not take this medication with alcohol or before driving. Monitor for excessive daytime sleepiness. Make sure that you follow up with your primary care doctor for further investigation of your chest pains and insomnia. Prescriptions: New trazodone 50 mg tablet 50 mg PO BEDTIME PRN (Reason: insomnia) Qty: 14 0RF No Action dextroamphetamine-amphetamine 5 mg tablet 5 mg PO DAILY Qty: 30 0RF Rx Instructions: Take with Adderall 5 mg ER AM dose if afternoon booster needed. multivitamin Tablet 1 tab PO DAILY cholecalciferol (vitamin D3) 50 mcg (2,000 unit) capsule 50 mcg PO DAILY melatonin 3 mg capsule 3 mg PO BEDTIME PRN dextroamphetamine-amphetamine 5 mg capsule,extended release 24hr 5 mg PO DAILY Qty: 30 0RF dextroamphetamine-amphetamine 5 mg capsule,extended release 24hr 5 mg PO DAILY Qty: 30 0RF dextroamphetamine-amphetamine 5 mg capsule,extended release 24hr 5 mg PO QAM Qty: 30 0RF Referrals: Neville Sue MD [Primary Care Provider] - Stand Alone Forms: Patient Portal/API/Survey
[2024-09-16] MEDS: TRAZODONE 50 MG TABLET 100 MG PO (19:53)
== END 2024-09-16 19:55 | disposition home or self-care (01) ==
PROVIDERS: Emergency Medicine; Emergency Provider Emergency Medicine; PCP Family Medicine
DX: R07.9 Chest pain, unspecified (principal); G47.00 Insomnia, unspecified; R00.2 Palpitations; R00.0 Tachycardia, unspecified; R79.89 Other specified abnormal findings of blood chemistry
CPT/HCPCS: 36415; 71045; 80053; 80305; 82550; 83690; 83735; 83880; 84484; 85025; 85610; 85730; 93005; 93010; 99283; 99284

== ENCOUNTER 2024-09-29 15:54 | Emergency (ER) | payer OTHER, SELFPAY ==
[2024-09-29] VITALS (7 sets, daily range): BP systolic 123–139; BP diastolic 75–87; PULSE 90–115; RESP 11–20; TEMP 36.6; O2SAT 91–100; BMI 28.0
--- NOTE | 2024-09-29 16:12 | DI.RAD.S_ITS ---
PROCEDURE: XR CHEST 1V INDICATIONS: chest pain TECHNIQUE: One view of the chest was acquired. COMPARISON: [facility], CR, XR CHEST 1V, 09/16/2024, 15:24. [facility], CR, XR CHEST 1V, 06/22/2024, 2:07. FINDINGS: Surgical changes and devices: None. Lungs and pleura: Lungs are clear. No pleural effusions or pneumothorax. Mediastinum: Mediastinal contours appear normal. Heart size is normal. Bones and chest wall: No suspicious bony lesions. Overlying soft tissues appear unremarkable. IMPRESSION: No acute cardiopulmonary abnormality is seen. Dictated by: Kendell Jones M.D. on 09/29/2024 at 16:48 Approved by: Kendell Jones M.D. on 09/29/2024 at 16:49
--- NOTE | 2024-09-29 16:12 | EKG_ITS ---
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
[2024-09-29 16:25] LABS: Add Manual Diff / Slide Review NO; Basophils Absolute Auto 100 /uL (0-100); Basophils Percent Auto 0.7 % (0-2); Eosinophils Absolute Auto 100 /uL (0-450); Eosinophils Percent Auto 1.2 % (2-4); Hematocrit 45.2 % (41-53); Hemoglobin 15.9 g/dL (13.5-17.5); Lymphocytes Absolute Auto 2000 /uL (1100-4500); Lymphocytes Percent Auto 23.6 % (25-40); Mean Corpuscular HGB Conc 35.3 % (30-36); Mean Corpuscular Hemoglobin 30.4 PG (26-34); Mean Corpuscular Volume 86.1 fL (80-100); Monocytes Absolute Auto 600 /uL (0-900); Monocytes Percent Auto 6.8 % (3-14); Neutrophils Absolute Auto 5800 /uL (1500-7000); Neutrophils Percent Auto 67.7 % (50-75); Platelet Count 216 X10^3/uL (150-400); Red Blood Cell Count 5.24 X10^6/uL (4.5-5.9); Red Cell Distribution Width 12.9 % (11.6-14.8); White Blood Cell Count 8.5 X10^3/uL (4.5-11.0)
[2024-09-29 16:29] LABS: INR 1.1 (0.9-1.3); Prothrombin Time 11.9 SECONDS (9.4-12.5)
[2024-09-29 16:32] LABS: PTT Partial Thromboplastin Tim 37 SECONDS (25.1-36.5)
[2024-09-29 16:37] LABS: Alanine Aminotransferase 56 IU/L (<50); Albumin 4.7 g/dL (3.5-5.0); Albumin Globulin Ratio 1.6 (1.0-2.8); Alkaline Phosphatase 51 U/L (38-126); Aspartate Aminotransferase 36 IU/L (17-59); BUN Creatinine Ratio 15.2 (6-22); Bilirubin Total 1.2 mg/dL (0.2-1.3); Blood Urea Nitrogen 12 mg/dL (9-20); Calcium 9.2 mg/dL (8.4-10.2); Carbon Dioxide 28 mmol/L (22-32); Chloride 104 mmol/L (98-107); Creatine Kinase 70 U/L (55-170); Estimated Glomerular Filt Rate > 60 mL/min (>60); Glucose 125 mg/dL (70-100); HEMOLYSIS 38 (0-50); Lipase 100 U/L (23-300); Magnesium 1.9 mg/dL (1.6-2.3); Potassium 3.8 mmol/L (3.4-5.1); Sodium 138 mmol/L (137-145); Total Protein 7.7 g/dL (6.3-8.2)
[2024-09-29 16:48] LABS: NT-proBNP (BNP-Adult 18+) < 20 pg/mL (<125); Troponin I < 0.012 ng/mL (0.01-0.034)
[2024-09-29] MEDS: SODIUM CHLORIDE 0.9% 500 ML 1000 ML IV (20:42)
[2024-09-29 21:13] LABS: D Dimer < 215 ng/ml (<500)
--- NOTE | 2024-09-29 21:37 | ED.ARRPALP ---
HPI - Arrhythmia/Palpitations General Chief Complaint: Arrhythmia/Palpitations Stated Complaint: rapid heart beat Time Seen by Provider: 09/29/24 20:38 Source: patient, RN notes reviewed and old records reviewed Mode of arrival: Ambulatory Limitations: no limitations History of Present Illness HPI narrative: 34-year-old male presents with complaint of palpitations and chest discomfort. Patient states he has had several visits recently in the past 5-6 weeks for elevated heart rate. He will sometimes has a little bit of chest discomfort. Describes it as left-sided he does note that he did injure his shoulder in the last several weeks and that this might be causing some of the pain as well. Has had several episodes with a max heart rate of 160 beats per minute have always resolved either with fluids are on their own without other interventions. Today he got a call from his mother that his father was in the emergency department to be evaluated for chest pain was doing okay but was being observed overnight. Patient states it made him feel very anxious heart rate immediately went up. He describes little bit of left-sided chest discomfort without any radiation. Taking a bath, icing the area and stretching seemed to make it feel better in terms of discomfort. No shortness of breath. No fevers or chills, no cold cough or congestion symptoms no nausea or vomiting no syncope. No swelling of extremities. No lightheadedness or passing out. Patient notes that he was started on pantoprazole for reflux he did stop his Vyvanse in the last 72 hours he stopped using any caffeine, spicy food or alcohol in the last 1-2 weeks because of reflux. He does take doxylamine nightly for sleep as well as melatonin and quit his bupropion about 1 or 2 weeks ago. Patient states no prior surgeries. Allergies to clindamycin and sulfa. No tobacco, was drinking to her free drinks nightly decreased to 1-2 over the past month and has stopped in the past week or so. No recreational drugs. Denies any major family history besides dad having history of hypertension, no known cardiovascular disease or embolic history. No long distance travel or sitting for prolonged periods of time. Has seen his primary care physician and has been scheduled for calcium channel scoring and treadmill and possibly Holter monitor or ZIO patch. Patient does express a lot of anxiety states he has had longstanding anxiety thinks that might be the source of his symptoms as well. Related Data Home Medications Medication Instructions Recorded Confirmed cholecalciferol (vitamin D3) 50 50 mcg PO DAILY 04/20/20 04/20/21 mcg (2,000 unit) capsule melatonin 3 mg capsule 3 mg PO BEDTIME PRN 10/04/20 04/20/21 multivitamin 1 tab PO DAILY 04/20/21 04/20/21 Previous Rx's Medication Instructions Recorded dextroamphetamine-amphetamine 5 mg 5 mg PO DAILY #30 tabs 01/25/21 tablet dextroamphetamine-amphetamine ER 5 5 mg PO DAILY #30 caps 06/16/21 mg 24hr capsule,extend release dextroamphetamine-amphetamine ER 5 5 mg PO DAILY #30 caps 06/16/21 mg 24hr capsule,extend release dextroamphetamine-amphetamine ER 5 5 mg PO QAM #30 caps 06/16/21 mg 24hr capsule,extend release trazodone 50 mg tablet 50 mg PO BEDTIME PRN insomnia #14 09/16/24 tabs Allergies Allergy/AdvReac Type Severity Reaction Status Date / Time peanut Allergy Severe Anaphylaxis Verified 09/29/24 16:12 Sulfa (Sulfonamide Allergy Unknown Verified 09/29/24 16:12 Antibiotics) clindamycin AdvReac Intermediate Vomiting Verified 09/29/24 16:12 Review of Systems Review of Systems ROS Unobtainable: All systems reviewed & are unremarkable except as noted in HPI and below Patient History Medical History (Updated 09/29/24 @ 22:44 by Lisa Pierre DO) Attention deficit hyperactivity disorder (ADHD), combined type, moderate Abdominal pain Social History marital status: unmarried,living together number of children: 0 lives independently: Yes housing: apartment education level: college occupational status: employed current occupational exposures/hazards: No special caity needs: No Smoking Status: Never smoker alcohol intake: current (3-7 drinks per weekd. ) substance use type: does not use during the past year weight has: decreased > 10 lbs (Working to lose weight for health reasons) well-balanced diet: daily or most days additional social history: - Family Constellation/Environment: Patient was born in [place] and raised from toddler to adult in the [facility]. - Childhood Trauma: None. - Developmental milestones: The patient reached normal developmental milestones. HISTORY: - None. - Deployments: N/A - Combat Exposure: N/A - Blast Exposure: N/A - Education: Patient was a good student in school and graduated from high school, later attending [employer] followed by [employer] with some courses at [employer] in [place] followed by transfer to [employer]. 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 - Current Living: Patient currently lives with his girlfriend - Support: Income from employment. - Legal: None. Interesting note, the will be working in construction over the summer and is going to be working on a project to build an observatory at home in [place]. Smoking Status: Never smoker alcohol intake frequency: 3 or more drinks per day Alcohol type: hard liquor Substance Use Type: does not use Exam Narrative Exam Narrative: GENERAL: Alert and oriented x three, well-appearing male in mild distress HEENT: Head normocephalic, atraumatic, EOMI, pupils reactive, face symmetric, moist mucous membranes NECK: Supple, full range of motion CARDIOVASCULAR: Regular rate and rhythm without murmurs, rubs or gallops. No JVD. No edema bilateral lower extremities. RESPIRATORY: Breath sounds equal bilaterally, no wheezes rales or rhonchi. No tachypnea accessory muscle use ABDOMEN: Soft, nontender. Normoactive bowel sounds all 4 quadrants. No guarding or rebound, rigidity, no mass : No CVA tenderness EXTREMITIES: Normal range of motion, no clubbing or edema. Neurovascularly intact NEUROLOGICAL: Cranial nerves II through XII grossly intact. Moving all extremities SKIN: Warm, dry, no petechiae, no rashes or lesions. Initial Vital Signs Initial Vital Signs: Vital Signs Temperature 98 F 09/29/24 16:10 Pulse Rate 115 H 09/29/24 16:10 Respiratory Rate 16 09/29/24 16:10 Blood Pressure 139/85 09/29/24 16:10 Pulse Oximetry 96 09/29/24 16:10 Oxygen Delivery Method Room Air 09/29/24 16:10 Scores HEART Score Heart Score history: Slightly Suspicious Heart Score EKG: Non-Specific repolarization disturbance Heart Score Age: < 45 years old Heart Score risk factors: No known risk factors Heart Score troponin: < or = to normal limit Heart Score Total: 1 Course Orders Ordered: ED Orders 09/29/24 20:45 D Dimer Stat Discontinued Medications Aspirin (Aspirin 81 Mg Chew Tab) 324 mg PO NOW ONE Stop: 09/29/24 16:13 Sodium Chloride (Normal Saline 0.9%) 500 mls @ 1,000 mls/hr IV BOLUS ONE Stop: 09/29/24 21:07 Last Infusion: 09/29/24 21:14 Dose: Infused Documented By: Admin: 09/29/24 20:42 Dose: 1,000 mls/hr Documented By: BONNIE Lorazepam (Lorazepam 0.5 Mg Tablet) 0.5 mg PO NOW ONE Stop: 09/29/24 22:38 Last Admin: 09/29/24 22:53 Dose: 0.5 mg Documented By: BONNIE Vital Signs Vital signs: Vital Signs - 8 hr 09/29/24 20:14 09/29/24 20:15 09/29/24 20:15 Pulse Rate 107 H 108 H Respiratory Rate 16 Blood Pressure 136/87 Pulse Oximetry 91 98 Oxygen Delivery Method Room Air 09/29/24 20:30 09/29/24 20:30 09/29/24 21:00 Pulse Rate 103 H Respiratory Rate 18 Blood Pressure 133/82 130/84 Pulse Oximetry 99 Oxygen Delivery Method 09/29/24 21:00 09/29/24 21:30 09/29/24 21:30 Pulse Rate 103 H 96 H Respiratory Rate 20 11 L Blood Pressure 130/78 Pulse Oximetry 100 99 Oxygen Delivery Method Room Air 09/29/24 22:00 09/29/24 22:00 Pulse Rate 90 Respiratory Rate 15 Blood Pressure 123/75 Pulse Oximetry 97 Oxygen Delivery Method Room Air MDM - Arrhythmia/Palpitations Lab Data 09/29/24 16:15 09/29/24 16:15 Labs: Lab Results 09/29/24 09/29/24 Range/Units 16:15 20:45 WBC 8.5 (4.5-11.0) X10^3/uL RBC 5.24 (4.5-5.9) X10^6/uL Hgb 15.9 (13.5-17.5) g/dL Hct 45.2 (41-53) % MCV 86.1 (80-100) fL MCH 30.4 (26-34) PG MCHC 35.3 (30-36) % RDW 12.9 (11.6-14.8) % Plt Count 216 (150-400) X10^3/uL Neut % (Auto) 67.7 (50-75) % Lymph % (Auto) 23.6 L (25-40) % Churchill % (Auto) 6.8 (3-14) % Eos % (Auto) 1.2 L (2-4) % Baso % (Auto) 0.7 (0-2) % Neut # (Auto) 5800 (6277-5642) /uL Lymph # (Auto) 2000 (3341-9877) /uL Churchill # (Auto) 600 (0-900) /uL Eos # (Auto) 100 (0-450) /uL Baso # (Auto) 100 (0-100) /uL PT 11.9 (9.4-12.5) SECONDS INR 1.1 (0.9-1.3) APTT 37 H (25.1-36.5) SECONDS D-Dimer < 215 (<500) ng/ml Sodium 138 (137-145) mmol/L Potassium 3.8 (3.4-5.1) mmol/L Chloride 104 (98-107) mmol/L Carbon Dioxide 28 (22-32) mmol/L BUN 12 (9-20) mg/dL Creatinine 0.79 (0.66-1.25) mg/dL Estimated GFR > 60 (>60) mL/min BUN/Creatinine Ratio 15.2 (6-22) Glucose 125 H (70-100) mg/dL Calcium 9.2 (8.4-10.2) mg/dL Magnesium 1.9 (1.6-2.3) mg/dL Total Bilirubin 1.2 (0.2-1.3) mg/dL AST 36 (17-59) IU/L ALT 56 H (<50) IU/L Alkaline Phosphatase 51 (38-126) U/L Total Creatine Kinase 70 (55-170) U/L Troponin I < 0.012 (0.01-0.034) ng/mL NT-Pro-B Natriuret Pep < 20 (<125) pg/mL Total Protein 7.7 (6.3-8.2) g/dL Albumin 4.7 (3.5-5.0) g/dL Globulin 3.0 (1.7-4.1) g/dL Albumin/Globulin Ratio 1.6 (1.0-2.8) Lipase 100 (23-300) U/L TSH 1.93 (0.47-4.68) uIU/mL Imaging Data Chest x-ray: Radiologist's Impresson: ? Close Chest X-Ray (Signed) Kendell Jones - 09/29/24 Chest X-Ray (Signed) Ernesto Tran - 09/16/24 Chest X-Ray (Signed) Sergio Scott - 06/22/24 Abdomen Ultrasound (Signed) Tyler Hernandezn - 01/24/23 Shoulder X-Ray (Signed) YvesEvleina - 02/28/22 Launch?[facility] [address] [address] XRay Report Signed Patient: Hermann Blanco MR#: [id number] : 1990 Acct:[id number] Age/Sex: 34 / M Date of Service: 09/29/24 Loc: ED Accession Number: [id number] Procedure: XR chest 1V Ordering Provider: Pearl Connolly D.O. PROCEDURE: XR CHEST 1V INDICATIONS: chest pain TECHNIQUE: One view of the chest was acquired. COMPARISON: [facility], CR, XR CHEST 1V, 09/16/2024, 15:24. [facility], CR, XR CHEST 1V, 06/22/2024, 2:07. FINDINGS: Surgical changes and devices: None. Lungs and pleura: Lungs are clear. No pleural effusions or pneumothorax. Mediastinum: Mediastinal contours appear normal. Heart size is normal. Bones and chest wall: No suspicious bony lesions. Overlying soft tissues appear unremarkable. IMPRESSION: No acute cardiopulmonary abnormality is seen. Dictated by: Kendell Jones M.D. on 09/29/2024 at 16:48 Approved by: Kendell Jones M.D. on 09/29/2024 at 16:49 ECG Data Attestation: I personally reviewed and interpreted this ECG as follows: Prior ECG tracings: available for review Interpretation: Sinus tachycardia rate of 115, DC 168 QRS of 96 QTC 464, no acute ST elevation depression. Patient has prior from 09/16/2024 with no acute changes. MDM Narrative Medical decision making narrative: 34-year-old male with complaint of palpitations occasional chest discomfort with that. He has had several visits so far workup has been negative. Patient has seen primary care in his in following up for additional workup. He was also recently stopped taking Vyvanse in the last 72 hours stopped caffeine, alcohol in the past 1-2 weeks. Labs show appropriate CBC, D-dimer is negative at less than 215, electrolytes are appropriate potassium 3.8 Mag is 1.9, glucose is 125 normal renal function BUN, ALT is 56 otherwise normal LFTs troponins less than 0.012 with a BNP of 20. UDS is negative. Did have a TSH added on. Chest x-ray shows no acute change EKG shows sinus tachycardia no acute ST changes. Patient did request a dose of lorazepam today. Asked if this to be helpful for long-term discussed talk to his physician about maybe propranolol but would proceed with his workup before starting this medication. Discharge Plan Departure Patient Disposition: Home Clinical Impression: Tachycardia Activity Restrictions/Additional Instructions: Follow up with your primary care physician I did add on thyroid test which is currently pending, please follow up these results up with your physician. Continue to make sure you are drinking and hydrating regularly, tried to get sleep I have recommended continue to hold your Vyvanse, caffeine and alcohol as these can also affect your rhythm or heart rate. Please return you are having new or worsening symptoms, passing out, new chest pain, shortness of breath, coughing up blood, new swelling of your extremities or other new or concerning changes. Prescriptions: No Action dextroamphetamine-amphetamine 5 mg tablet 5 mg PO DAILY Qty: 30 0RF Rx Instructions: Take with Adderall 5 mg ER AM dose if afternoon booster needed. multivitamin Tablet 1 tab PO DAILY cholecalciferol (vitamin D3) 50 mcg (2,000 unit) capsule 50 mcg PO DAILY melatonin 3 mg capsule 3 mg PO BEDTIME PRN dextroamphetamine-amphetamine 5 mg capsule,extended release 24hr 5 mg PO DAILY Qty: 30 0RF dextroamphetamine-amphetamine 5 mg capsule,extended release 24hr 5 mg PO DAILY Qty: 30 0RF dextroamphetamine-amphetamine 5 mg capsule,extended release 24hr 5 mg PO QAM Qty: 30 0RF trazodone 50 mg tablet 50 mg PO BEDTIME PRN (Reason: insomnia) Qty: 14 0RF Referrals: Tauxe,Neville, MD [Primary Care Provider] - Stand Alone Forms: Patient Portal/API/Survey
--- NOTE | 2024-09-29 22:30 | PC.NURSE ---
Pt ambulatory to restroom without difficulty or assistance.
[2024-09-29] MEDS: LORazepam 0.5 MG TABLET PO (22:53)
[2024-09-29 23:28] LABS: TSH w/ Reflex to FT4 1.93 uIU/mL (0.47-4.68)
== END 2024-09-29 23:10 | disposition home or self-care (01) ==
PROVIDERS: Emergency Medicine; Emergency Provider Emergency Medicine; PCP Family Medicine
DX: R00.0 Tachycardia, unspecified (principal); R07.9 Chest pain, unspecified
CPT/HCPCS: 36415; 71045; 80053; 82550; 83690; 83735; 83880; 84443; 84484; 85025; 85379; 85610; 85730; 93005; 96360; 99284

== ENCOUNTER → 2024-10-22 | Outpatient (CLI) | payer OTHER, SELFPAY ==
--- NOTE | 2024-10-22 | DI.NM.S_ITS ---
PROCEDURE: NM EXERCISE TREADMILL NON NUC COMPARISON: None. INDICATIONS: CHEST PAIN FINDINGS: Rest ECG sinus tachycardia 106 bpm. Steve protocol 10:16, max heart rate 194 bpm (122% peak predicted), peak BP 182/78, 11 METS, SHIRLEY +23%. Exercise ECG sinus tachycardia, no ST segment changes or arrhythmia. The patient did not report exercise induced chest discomfort. IMPRESSION: Low risk study. No evidence of exercise induced ischemia or arrhythmia. Resting tachycardia. Normal hemodynamic response. Reduced exercise capacity. Dictated by: Denise Holland D.O. on 10/22/2024 at 15:59 Approved by: Denise Holland D.O. on 11/06/2024 at 12:00
== END ==
LOC: NUCM 07:29
PROVIDERS: PCP Family Medicine; Referring Provider Family Medicine; Visit Provider Family Medicine
DX: R07.89 Other chest pain (principal); R00.0 Tachycardia, unspecified
CPT/HCPCS: 93017

== ENCOUNTER → 2024-12-24 13:11 | Outpatient (ROUT) | payer OTHER, SELFPAY ==
[2024-12-24 16:09] LABS: Influenza A - CEPHEID Flu A POSITIVE (NEGATIVE); Influenza B - CEPHEID Flu B NEGATIVE (NEGATIVE); Respiratory Syncytial Virus Negative (Negative)
[2024-12-24 16:12] LABS: COVID-19 CEPHEID 4-PLEX PCR Negative (Negative)
== END ==
PROVIDERS: PCP Family Medicine; Visit Provider Family Medicine
DX: R05.1 Acute cough (principal); R50.9 Fever, unspecified; R52 Pain, unspecified; J02.9 Acute pharyngitis, unspecified
CPT/HCPCS: 0241U